=== PATIENT | female | born 1975 | race Caucasian/White ===

== ENCOUNTER → 2021-02-28 12:25 | Outpatient (CLI) | payer OTHER, SELFPAY | PROVIDERS: Visit Provider Nurse Practitioner | DX: Z20.822 Contact with and (suspected) exposure to COVID-19 (principal) | CPT/HCPCS: C9803; U0003; U0005 ==

== ENCOUNTER 2023-07-22 12:39 | Emergency (ER) | payer BC, SELFPAY ==
[2023-07-22 12:52] VITALS: BP 156/87; PULSE 77; RESP 18; O2SAT 97; BMI 36.5
--- NOTE | 2023-07-22 13:10 | [facility].EDGENADL ---
Discharge Plan Disposition Patient Disposition: Home, Self-Care Prescriptions Prescriptions: New cephalexin 500 mg capsule 500 mg PO QID 10 Days Qty: 40 0RF Referrals Follow up/Referrals: Magnolia Burr MD [Referring] - See instructions Anish Butler MD [Primary Care Provider] - See instructions Activity Restrictions/Add. Instructions Additional Instructions/Restrictions: Have a nonhealing ulcer which does not have classic signs or symptoms of being infected and you have failed multiple antibiotics. The antibiotics you have been treated with should have adequately covered staph but we will give you Keflex today which would give extended coverage of strep species. However I am not sure that this is an infection and I recommend that you follow-up with our teletype technician for further evaluation given the fact that this is a nonhealing superficial ulcer. Clinical Impressions Clinical Impression: Non-healing ulcer Discharge ED Provider: Suzie Williamson General Adult HPI General Chief complaint: Recheck/Abnormal Lab/Rx Stated complaint: right leg spider bite Time Seen by Provider: 07/22/23 13:03 Mode of Arrival: Ambulatory Source of Information: Patient Limitations: No Limitations Description of Symptoms (Recalled from ER Triage Doc. by RN): Patient c/o spider bite on her right leg from the first week of june. Pt reports she has been through two rounds of antibiotics and its not getting any better. History of Present Illness HPI narrative: Patient is a 48-year-old female presenting today with a nonhealing wound on her right lateral aspect of her lower extremity that she thinks is a spider bite. She states she did not actually see a spider this has been ongoing for several weeks at this point. She has been on Bactrim and doxycycline without any improvement. No fevers or chills no spreading erythema or pus coming from the wound. She does have a history of melanoma. Denies any other antibiotic allergies or history. Related Data Previous Rx's Medication Instructions Recorded cephalexin 500 mg capsule 500 mg PO QID 10 days #40 caps 07/22/23 Allergies Allergy/AdvReac Type Severity Reaction Status Date / Time NO KNOWN ALLERGIES Allergy Uncoded 01/28/17 15:03 [facility] Disclaimer: The information contained in this section may have been updated after the patient was seen, as this information can be updated by other users. Social History Smoking Status: Current every day smoker alcohol intake: never current occupational status: other Travel in the last 8 weeks: None ROS Obtained: Yes All systems reviewed & no additional complaints except as documented Physical Exam General General appearance: alert and in no apparent distress Respiratory Respiratory exam: Present normal lung sounds bilaterally Cardiovascular Cardiovascular exam: Present regular rate and normal rhythm Neurological Exam Neurological exam: Present alert and oriented X3 Skin Skin exam: Present other (Distal right lower extremity there is a 0.5 cm area of central necrosis and mild erythema surrounding this no purulent drainage or surrounding erythema in the region no fluctuance) Medical Decision Making Andrew Inquiry Pt receiving controlled substance: No Vital Signs: 07/22/23 12:52 Pulse Rate [Right Brachial] 77 Respiratory Rate 18 Blood Pressure [Right Arm] 156/87 H Blood Pressure Mean [Right Arm] 110 02 Sat by Pulse Oximetry 97 Oxygen Delivery Method Room Air Medical Decision Narrative: 48-year-old nontoxic-appearing female presenting today with a nonhealing ulceration of the right lateral aspect of her lower extremity. This is not clearly infected. There is a small area of erythema but does not appear to be cellulitis additionally in the central area is necrotic and not necessarily having purulent drainage. She is already failed multiple antibiotics that should cover staph species will add on Keflex for strep coverage. But I told her this is most likely not an infection but a nonhealing ulcer. No drainage at the moment to culture. I have advised that she follow-up with dermatology as the differential needs to be expanded as she is not improving with normal antibiotic therapy. I do not suspect an abscess. She is discharged in stable condition. Critical Care Critical Care Time Critical Care Time: No
[2023-07-22 13:21] VITALS: BP 156/87; PULSE 77; RESP 18; TEMP 36.7; O2SAT 97
== END 2023-07-22 13:22 | disposition home or self-care (01) ==
PROVIDERS: Emergency Provider Student in an Organized Health Care Education/Training Program; PCP Family Medicine
DX: L97.919 Non-pressure chronic ulcer of unspecified part of right lower leg with unspecified severity (principal); F17.210 Nicotine dependence, cigarettes, uncomplicated
CPT/HCPCS: 99283